=== PATIENT | female | born 2000 | race Caucasian/White ===

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

== ENCOUNTER 2023-04-25 15:05 | Emergency (ER) | payer OTHER ==
--- NOTE | 2023-04-25 15:48 | ED Physician Documentation ---
PD HPI CHEST PAIN - Stated complaint Stated Complaint: CHEST PX,DIZZINESS - Chief complaint Chief Complaint: Cardiac - History obtained from History obtained from: Patient - History of Present Illness Timing - onset: How many hours ago (1) Timing - onset during: Light activity Timing - duration: Hours (1) Timing - details: Abrupt onset, Still present Quality: Sharp Location: Substernal Radiation: No: Neck, Left upper extremity Worsened by: Inspiration, Movement, Palpation Associated symptoms: No: Shortness of air, Nausea, Feeling faint / dizzy, Palpitations, Cough Similar symptoms before: Has not had sx before Review of Systems Constitutional: denies: Fever, Chills Nose: denies: Rhinorrhea / runny nose, Congestion Throat: denies: Sore throat Respiratory: denies: Cough GI: denies: Abdominal Pain, Nausea, Vomiting PD PAST MEDICAL HISTORY - Past Medical History Past Medical History: Yes Cardiovascular: Murmur HEENT: Other Psych: Depression, Anxiety, Bipolar disorder, Post traumatic stress disorder, Other - Past Surgical History Past Surgical History: Yes HEENT: Other - Present Medications Home Medications: Ambulatory Orders Medication Instructions Recorded Confirmed Famotidine [Pepcid] 20 mg PO DAILY #20 tablet 04/25/23 Ibuprofen [Motrin] 1 tablet PO Q6HR PRN 04/25/23 04/25/23 Oxycodone HCl/Acetaminophen 1 tab ORAL Q4HR PRN 04/25/23 04/25/23 [Oxycodone-Acetaminophen 5-325] clindamycin HCL [Clindamycin HCl] 300 mg PO Q6HR 04/25/23 04/25/23 - Allergies Allergies/Adverse Reactions: Allergies Allergy/AdvReac Type Severity Reaction Status Date / Time amoxicillin Allergy Rash Verified 04/25/23 15:19 - Social History Does the pt smoke?: No Smoking Status: Never smoker Does the pt drink ETOH?: No Does the pt have substance abuse?: No - Immunizations Immunizations are current?: Yes - POLST Patient has POLST: No PD ED PE NORMAL - Vitals Vital signs reviewed: Yes - General General: Alert and oriented X 3, No acute distress, Well developed/nourished - Neck Neck: Supple, no meningeal sign, No adenopathy - Cardiac Cardiac: RRR, No murmur - Respiratory Respiratory: No respiratory distress, Clear bilaterally, Other (ocal chestwall tenderness left parasternal. No redness, rash nor sores. ) - Abdomen Abdomen: Soft, Non tender - Derm Derm: Normal color, Warm and dry, No rash - Extremities Extremities: No edema, No calf tenderness / cord Results - Vitals Vitals: Oxygen O2 Source Room air - EKG (time done) 15:18 EKG releavant findings:: EKG personally interpreted by author of this note. Relevant findings are: Rate: Rate (enter#) (73) Rhythm: NSR [place]: Normal Intervals: Normal [place] QRS: Normal Ischemia: Normal ST segments. No: ST elevation c/w ischemia, ST depression - Rads (name of study) baldemar xray Relevant Findings:: Prelim report reviewed, EMP independent interpretation of test (no acute process) PD Medical Decision Making - ED course Complexity details: reviewed results (ECG and CXR normal. ), considered differential (Distinct chest wall tenderness and pain with movement and breathing. normal ECG and CXR. I felt this was adequate workup for the presentation. No URI, no injury, PERC negative. ), d/w patient Departure - Departure Disposition: Home, Self Care Clinical Impression: Anterior chest wall pain, Acute costochondritis Condition: Stable Record reviewed to determine appropriate education?: Yes Instructions: ED Chest Pain Atypical Unkn Cause Follow-Up: KANDY HERNANDEZ PA-C [Primary Care Provider] - Prescriptions: Famotidine [Pepcid] 20 mg PO DAILY #20 tablet Comments: Since you did seem to have some improvement with the antacid, I would continue with antacids such as Maalox or Mylanta 4 times daily and particularly before bed over the next several days. Also add acid reducing medicine such as famotidine twice daily for the next week. An element of your pain seems likely to be musculoskeletal as there is tende rness in the chest wall. For that I would suggest anti-inflammatory such as naproxen or ibuprofen 2 to 3 tablets twice daily with food. To that add Tylenol every 4-6 hours if needed for pain. Your EKG appears normal as does your vital signs. Your chest x-ray is clear without any signs of lung abnormalities. It does not look to be heart or lung related. Recheck if not improved over the next few days and resolved. Return if worsening or other symptoms develop. Forms: PCP List Discharge Date/Time: 04/25/23 17:03
[2023-04-25] MEDS: ACETAMINOPHEN 325 MG TABLET PO STA (16:17)
[2023-04-25] MEDS: IBUPROFEN 600 MG TABLET PO STA (16:17)
[2023-04-25] MEDS: MAG HYDROX/AL HYDROX/SIMETH 30 ML UDC PO STA (16:17)
--- NOTE | 2023-04-25 16:22 | XRAY Report ---
PROCEDURE: Chest 1V INDICATIONS: chest pain TECHNIQUE: One view of the chest was acquired. COMPARISON: None. FINDINGS: Surgical changes and devices: None. Lungs and pleura: No pleural effusions or pneumothorax. Lungs are clear. Mediastinum: Mediastinal contours appear normal. Heart size is normal. Bones and chest wall: No suspicious bony lesions. Overlying soft tissues appear unremarkable. IMPRESSION: No acute cardiopulmonary process. Reviewed by: Nette Prieto MD on 04/25/2023 4:[address] [facility] Approved by: Nette Prieto MD on 04/25/2023 4:20 PM PST Station ID: [id number]
[2023-04-25 17:09] VITALS: BP 118/80; O2SAT 100
== END 2023-04-25 17:03 | disposition home or self-care (01) ==
LOC: ED 15:05
DX: M94.0 Chondrocostal junction syndrome [Tietze] (principal); Z79.899 Other long term (current) drug therapy
CPT/HCPCS: 71045; 93005; 99283; 99284; A9270

== ENCOUNTER 2023-08-12 09:43 | Emergency (ER) | payer OTHER ==
[2023-08-12 10:37] LABS: BASOPHILS % (AUTO) 0.3 %; EOSINOPHILS # (AUTO) 0.1 10^3/uL (0.0-0.7); EOSINOPHILS % (AUTO) 0.9 %; HCT - HEMATOCRIT 38.1 % (37.0-47.0); HGB - HEMOGLOBIN 12.6 g/dL (12.0-16.0); LYMPHOCYTES # (AUTO) 1.5 10^3/uL (1.5-3.5); LYMPHOCYTES % (AUTO) 21.9 %; MEAN CORPUSCULAR HEMOGLOBIN 29.6 pg (27.0-31.0); MEAN CORPUSCULAR HGB CONC 33.1 g/dL (32.0-36.0); MEAN CORPUSCULAR VOLUME 89.6 fL (81.0-99.0); MEAN PLATELET VOLUME 10.7 fL (7.9-10.8); MONOCYTES # (AUTO) 0.5 10^3/uL (0.0-1.0); MONOCYTES % (AUTO) 7.1 %; NEUTROPHILS # (AUTO) 4.6 10^3/uL (1.5-6.6); NEUTROPHILS % (AUTO) 69.6 %; PLT - PLATELET COUNT 204 10^3/uL (130-450); RED BLOOD COUNT 4.25 10^6/uL (4.20-5.40); RED CELL DISTRIBUTION WIDTH 12.1 % (12.0-15.0); WHITE BLOOD COUNT 6.6 x10^3/uL (4.8-10.8)
[2023-08-12 10:45] LABS: BILIRUBIN,URINE NEGATIVE (NEGATIVE); GLUCOSE, URINE (UA) NEGATIVE (NEGATIVE); KETONES,URINE (UA) NEGATIVE (NEGATIVE); LEUKOCYTE ESTERASE, URINE NEGATIVE (NEGATIVE); NITRITE,URINE NEGATIVE (NEGATIVE); OCCULT BLOOD,URINE NEGATIVE (NEGATIVE); PROTEIN,URINE NEGATIVE (NEGATIVE); UROBILINOGEN,URINE 0.2 (NORMAL) E.U./dL (NORMAL)
[2023-08-12 10:46] LABS: CLARITY,URINE CLEAR (CLEAR); HCG UR QUAL NEGATIVE
[2023-08-12 10:50] LABS: ALBUMIN 4.6 g/dL (3.2-5.5); CREATININE 0.5 mg/dL (0.6-1.3); POTASSIUM 3.9 mmol/L (3.5-4.5); TOTAL PROTEIN 6.9 g/dL (6.4-8.9)
[2023-08-12] MEDS: SODIUM CHLORIDE 0.9% 1,000 ML IV STA (11:13)
[2023-08-12] MEDS ORDERED: iohexoL-300 100 ML VIAL ONE (11:27)
[2023-08-12] MEDS: iohexoL-300 100 ML VIAL IVP ONE (12:44)
--- NOTE | 2023-08-12 12:50 | CT Report ---
PROCEDURE: Abdomen/Pelvis W INDICATIONS: L sided abd pain CONTRAST: 100ml omni 300 TECHNIQUE: After the administration of intravenous contrast, a CT scan of the abdomen and pelvis was performed. Images were recorded and evaluated at appropriate window settings. Reformats: coronal and sagittal. F or radiation dose reduction, the following was used: automated exposure control, adjustment of mA and /or kV according to patient size. COMPARISON: None. FINDINGS: Image quality: Diagnostic. Lower chest: Unremarkable. Liver: No solid mass. Mild diffuse hepatic steatosis.. Gallbladder: No radiopaque stones or wall thickening. Biliary tree: No intrahepatic or extrahepatic dilation, accounting for age. Spleen: No splenomegaly. Pancreas: No pancreatic ductal dilation. Adrenals: No adrenal nodule. Kidneys and ureters: No hydronephrosis. No renal cystic lesion which requires follow up. No solid mas s. Stomach, bowel and peritoneum: : There is mostly decompressed. Question possible distal colitis invol ving the sigmoid and rectum. Question focal abscess involving the right lateral wall of the rectum. T his is suggested on image 118/2, with a potential 1.1 x 2.1 cm wall abscess noted. Also reference sag ittal image 92 of series 6.. No pathologic free fluid. Lymph nodes: No central or retroperitoneal adenopathy. Vessels: No infrarenal aortic aneurysm. Patent portal vein. PELVIS Reproductive organs: Unremarkable. Bladder: No abnormal wall thickening, accounting for underdistention. Pelvic lymph nodes: No pelvic adenopathy by size criteria. Bones: No aggressive osseous abnormality. Other: No significant ventral or inguinal hernia. IMPRESSION: 1. Findings suggesting possible mild distal colitis involving the sigmoid and rectum with possible fo stefanie rectal wall abscess. 2. Mild diffuse hepatic steatosis. Consider infectious versus inflammatory distal colitis. Reviewed by: Kamlesh Crabtree MD on 08/12/2023 12:48 PM PDT Approved by: Kamlesh Crabtree MD on 08/12/2023 12:48 PM PDT Station ID: [id number]
--- NOTE | 2023-08-12 13:10 | ED Physician Documentation ---
History of Present Illness - Stated complaint Stated Complaint: LLQ ABD PX,NAUSEA,CONSTIPATION - Chief complaint Chief Complaint: Abd Pain - History obtained from History obtained from: Patient - History of Present Illness Pain level max: 8 Pain level now: 8 - Additonal information Additional information: 23-year-old female presents to the emergency department with left sided abdominal pain worsening over the past 5 days. Feels nauseated and has been constipated. She has not had similar symptoms previously. No recent travel. No recent antibiotics. No blood in the stool. Denies any possibility of . Has not taken anything for pain. No fevers. No chills. No history of diverticulitis, no history of inflammatory bowel disease in the family. Review of Systems Constitutional: denies: Fever, Chills Cardiac: denies: Chest pain / pressure, Palpitations Respiratory: denies: Cough GI: denies: Vomiting : denies: Dysuria, Frequency, Hesitancy, Vaginal bleeding, Irregular menses, Now EGA Skin: denies: Rash Musculoskeletal: denies: Neck pain, Back pain Neurologic: denies: Headache PD PAST MEDICAL HISTORY - Past Medical History Past Medical History: Yes Cardiovascular: Murmur HEENT: Other Psych: Depression, Anxiety, Bipolar disorder, Post traumatic stress disorder, Other - Past Surgical History Past Surgical History: Yes HEENT: Other - Present Medications Home Medications: Ambulatory Orders Medication Instructions Recorded Confirmed Ciprofloxacin HCl [Cipro] 500 mg PO BID #20 tablet 08/12/23 Ondansetron Odt [Zofran] 4 mg TL Q6H PRN #20 tablet 08/12/23 Oxycodone HCl/Acetaminophen 1 - 2 each PO Q6H PRN #14 tablet 08/12/23 [Percocet 5-325 mg Tablet] MDD 6 tabs metroNIDAZOLE [Flagyl] 500 mg PO TID 10 Days #30 tablet 08/12/23 - Allergies Allergies/Adverse Reactions: Allergies Allergy/AdvReac Type Severity Reaction Status Date / Time amoxicillin Allergy Rash Verified 08/12/23 09:52 - Social History Does the pt smoke?: No Smoking Status: Never smoker Does the pt drink ETOH?: No Does the pt have substance abuse?: No - Immunizations Immunizations are current?: Yes - POLST Patient has POLST: No PD ED PE NORMAL - Vitals Vital signs reviewed: Yes - General General: Alert and oriented X 3, No acute distress - HEENT HEENT: PERRL, Moist mucous membranes - Neck Neck: Supple, no meningeal sign - Cardiac Cardiac: RRR, Strong equal pulses - Respiratory Respiratory: No respiratory distress, Clear bilaterally - Abdomen Abdomen: Soft, Non distended, Other (Tender to palpation along the left side of the abdomen, left upper and left lower quadrants. No peritoneal signs.) - Back Back: No CVA TTP, No spinal TTP - Derm Derm: Warm and dry - Extremities Extremities: No edema - Neuro Neuro: Alert and oriented X 3 - Psych Psych: Normal mood, Normal affect Results - Vitals Vitals: Vital Signs - 24 hr 08/12/23 08/12/23 08/12/23 09:52 11:16 13:00 Temperature 36.5 C Heart Rate 118 H 82 86 Respiratory 18 17 16 Rate Blood Pressure 133/87 H 114/82 H 115/75 O2 Saturation 99 100 98 Oxygen O2 Source Room air - Labs Labs: Laboratory Tests 08/12/23 08/12/23 08/12/23 10:32 10:32 10:40 WBC 6.6 RBC 4.25 Hgb 12.6 Hct 38.1 MCV 89.6 MCH 29.6 MCHC 33.1 RDW 12.1 Plt Count 204 MPV 10.7 Neut # (Auto) 4.6 Lymph # (Auto) 1.5 [place] # (Auto) 0.5 Eos # (Auto) 0.1 Baso # (Auto) 0.0 Absolute Nucleated RBC 0.00 Nucleated RBC % 0.0 Sodium 139 Potassium 3.9 Chloride 108 Carbon Dioxide 24 Anion Gap 7.0 BUN 12 Creatinine 0.5 L Estimated GFR (MDRD) 156 Glucose 114 H Calcium 10.0 Total Bilirubin 1.0 AST 14 ALT 12 Alkaline Phosphatase 62 Total Protein 6.9 Albumin 4.6 Globulin 2.3 Albumin/Globulin Ratio 2.0 Lipase 23 Urine Color YELLOW Urine Clarity CLEAR Urine pH 6.0 Ur Specific [place] 1.025 Urine Protein NEGATIVE Urine Glucose (UA) NEGATIVE Urine Ketones NEGATIVE Urine Occult Blood NEGATIVE Urine Nitrite NEGATIVE Urine Bilirubin NEGATIVE Urine Urobilinogen 0.2 (NORMAL) Ur Leukocyte Esterase NEGATIVE Ur Microscopic Review NOT INDICATED Urine Culture Comments NOT INDICATED Urine HCG, Qual NEGATIVE - Rads (name of study) CT abdomen pelvis Relevant Findings:: Final report received, See rad report PD Medical Decision Making - ED course Complexity details: reviewed results, re-evaluated patient, considered differential, d/w patient, d/w family ED course: 23-year-old female with abdominal pain. Abdominal CT shows a left-sided colitis with a possible small wall abscess. Reviewed the case with Dr. Humphreys, general surgery on-call, we will place the patient on oral antibiotics and follow-up closely in the surgery clinic next week for repeat evaluation and consideration of colonoscopy. Strict return precautions were given. Patient is not having any rectal pain or pain with bowel movements. Patient is very well-appearing, nontoxic. Afebrile. No evidence of sepsis. Patient counseled regarding signs and symptoms for which I believe and urgent re-evaluation would be necessary. Patient with good understanding of and agreement to plan and is comfortable going home at this time This document was made in part using voice recognition software. While efforts are made to proofread this document, sound alike and grammatical errors may occur. Departure - Departure Disposition: 01 Home, Self Care Clinical Impression: Colitis Condition: Good Instructions: ED Abdominal Pain Female Non-Specific Abdominal Pain Follow-Up: KANDY HERNANDEZ PA-C [Primary Care Provider] - Riley Humphreys MD [Provider Admit Priv/Credential] - Prescriptions: Ciprofloxacin HCl [Cipro] 500 mg PO BID #20 tablet metroNIDAZOLE [Flagyl] 500 mg PO TID 10 Days #30 tablet Oxycodone HCl/Acetaminophen [Percocet 5-325 mg Tablet] 1 - 2 each PO Q6H PRN #14 tablet MDD 6 tabs PRN Reason: pain Ondansetron Odt [Zofran] 4 mg TL Q6H PRN #20 tablet PRN Reason: Nausea / Vomiting Comments: Your prescriptions were sent to [facility] in [place]. As we discussed your CT scan shows evidence of colitis which is an infection/inflammation of your colon. There is a possible small abscess as well. I spoke with Dr. Humphreys, general surgery on-call who recommends antibiotics and follow-up in clinic next week for repeat evaluation. Please take all antibiotics until gone. You can use the pain medication as needed. Drink plenty of fluids. Please return especially for fevers, worsening pain or other new or worrisome symptoms. I am prescribing a short course of narcotic pain medication for you. These are potentially dangerous and addictive medications that should be used carefully. These medications may constipate you. Take an [id number] stool softener (docusate) twice daily with plenty of water while taking these medications. If you go 24 hours without a bowel movement, take [id number] miralax, per package instructions. Do not drink or drive while taking these medications. If you received narcotic or sedating medications while in the emergency department, do not drive for 24 hours. Store this medication in a safe, secure place and out of reach of children. It is a violation of federal law to give or sell this medication to another person or to use in a manner other than prescribed. The ED will not refill narcotic prescriptions, including prescriptions lost or stolen. To dispose of unwanted medications: 1. [facility] [address] [facility] in [place] has a medication drop box. They accept prescription medications (in pill form) Tuesday through Tuesday 9:00 a.m. to 5:00 p.m. 2. [facility] [employer] accepts prescription medications (in pill form only) for disposal year round. Call for more information. 3. Contact the [facility] for the next [facility] sponsored prescription drug collection event. , [phone], or [phone]; EXAM: [id number] CT/ABPEW ([id number]) PROCEDURE: Abdomen/Pelvis W INDICATIONS: L sided abd pain CONTRAST: 100ml omni 300 TECHNIQUE: After the administration of intravenous contrast, a CT scan of the abdomen and pelvis was performed. Images were recorded and evaluated at appropriate window settings. Reformats: coronal and sagittal. For radiation dose reduction, the following was used: automated exposure control, adjustment of mA and/or kV according to patient size. COMPARISON: None. FINDINGS: Image quality: Diagnostic. Lower chest: Unremarkable. Liver: No solid mass. Mild diffuse hepatic steatosis.. Gallbladder: No radiopaque stones or wall thickening. Biliary tree: No intrahepatic or extrahepatic dilation, accounting for age. Spleen: No splenomegaly. Pancreas: No pancreatic ductal dilation. Adrenals: No adrenal nodule. Kidneys and ureters: No hydronephrosis. No renal cystic lesion which requires follow up. No solid mass. Stomach, bowel and peritoneum: : There is mostly decompressed. Question possible distal colitis involving the sigmoid and rectum. Question focal abscess involving the right lateral wall of the rectum. This is suggested on image 118/2, with a potential 1.1 x 2.1 cm wall abscess noted. Also reference sagittal image 92 of series 6.. No pathologic free fluid. Lymph nodes: No central or retroperitoneal adenopathy. Vessels: No infrarenal aortic aneurysm. Patent portal vein. PELVIS Reproductive organs: Unremarkable. Bladder: No abnormal wall thickening, accounting for underdistention. Pelvic lymph nodes: No pelvic adenopathy by size criteria. Bones: No aggressive osseous abnormality. Other: No significant ventral or inguinal hernia. IMPRESSION: 1. Findings suggesting possible mild distal colitis involving the sigmoid and rectum with possible focal rectal wall abscess. 2. Mild diffuse hepatic steatosis. Consider infectious versus inflammatory distal colitis. Forms: PCP List Discharge Date/Time: 08/12/23 13:30
[2023-08-12] MEDS: CIPROFLOXACIN 250 MG TABLET PO STA (13:13)
[2023-08-12] MEDS: metroNIDAZOLE 250 MG TABLET PO STA (13:13)
[2023-08-12] MEDS: ONDANSETRON 4 MG/2 ML VIAL IVP STA (13:13)
[2023-08-12 13:28] VITALS: BP 115/75; O2SAT 98
== END 2023-08-12 13:30 | disposition home or self-care (01) ==
LOC: ED 09:43
DX: K52.9 Noninfective gastroenteritis and colitis, unspecified (principal)
CPT/HCPCS: 36415; 74177; 80053; 81003; 81025; 83690; 85025; 96374; 99284; A9270; Q9967; 81001; 87086